=== PATIENT | female | born 1960 | race Caucasian/White ===

== ENCOUNTER 2017-07-31 09:44 | Day surgery (SDC) | payer OTHER ==
[2017-07-31] MEDS ORDERED: Propofol 10 mg/ml Inj (20 ML) ONE (12:10)
[2017-07-31] MEDS ORDERED: Lactated Ringer's 500 ML IV SCH (12:15)
[2017-07-31] MEDS ORDERED: Lactated Ringer's 500 ML IV ONE (12:17)
[2017-07-31 12:26] VITALS: O2SAT 100
[2017-07-31 14:16] VITALS: BP 124/70; PULSE 58; RESP 12; TEMP 97.1
== END 2017-07-31 13:40 | disposition home or self-care (01) ==
LOC: C.ENDO 09:44
PROVIDERS: ATTEND Internal Medicine Gastroenterology
DX: Z12.11 Encounter for screening for malignant neoplasm of colon (principal); K57.30 Diverticulosis of large intestine without perforation or abscess without bleeding; K64.0 First degree hemorrhoids; K64.4 Residual hemorrhoidal skin tags
CPT/HCPCS: 45378; J2704; J7120